=== PATIENT | male | born 1970 | race Caucasian/White ===

== ENCOUNTER 2020-02-29 03:46 | Emergency (ER) | payer OTHER ==
[~2020-02-29] VITALS: Ht 170.2 cm; Wt 103.6 kg
--- NOTE | 2020-02-29 04:14 | PHYS DOC ---
Past History Past Medical History: Diabetes, Hypertension Past Surgical History: Other Additional Past Surgical Histo: R ACL Alcohol Use: None General Adult EDM: Chief Complaint: SHORTNESS OF BREATH HPI: HPI: 49-year-old male presents with shortness of breath. [facility] where [facility] are known positive COVID-19 patients. The patient was tested on Monday of last week and that test was negative. After the test, but before the results he was in close contact with another patient that ended up being positive. The patient was retested yesterday with the results are not currently available. He woke up this morning around 2:30 AM feeling like he could not take a deep breath. The patient has been having intermittent sweats and chills. No measured fever. He is also had body aches and a mild sore throat. Review of Systems: Review of Systems: Constitutional: Body aches. Denies fever or chills Eyes: Denies change in visual acuity HENT: sore throat Respiratory: shortness of breath Cardiovascular: Denies chest pain or edema GI: Denies abdominal pain, nausea, vomiting, bloody stools or diarrhea : Denies dysuria Musculoskeletal: Denies back pain or joint pain Integument: Denies rash Neurologic: Denies headache, focal weakness or sensory changes Endocrine: Denies polyuria or polydipsia Lymphatic: Denies swollen glands Psychiatric: Denies depression or anxiety Heart Score: Risk Factors: Risk Factors: DM, Current or recent (<one month) smoker, HTN, HLP, family history of CAD, obesity. Risk Scores: Score 0 - 3: 2.5% MACE over next 6 weeks - Discharge Home Score 4 - 6: 20.3% MACE over next 6 weeks - Admit for Clinical Observation Score 7 - 10: 72.7% MACE over next 6 weeks - Early Invasive Strategies Allergies: Allergies: Allergies Coded Allergies Type Severity Reaction Last Updated Verified gemfibrozil Allergy Unknown 02/29/20 Yes Physical Exam: PE: Constitutional: Well developed, well nourished, no acute distress, non-toxic appearance. [] HENT: Normocephalic, atraumatic, bilateral external ears normal, oropharynx moist, no oral exudates, nose normal. [] Eyes: PERRLA, EOMI, conjunctiva normal, no discharge. [] Neck: Normal range of motion, no tenderness, supple, no stridor. [] Cardiovascular:Heart rate regular rhythm, no murmur [] Lungs & Thorax: Bilateral breath sounds clear to auscultation [] Abdomen: Bowel sounds normal, soft, no tenderness, no masses, no pulsatile masses. [] Skin: Warm, dry, no erythema, no rash. [] Back: No tenderness, no CVA tenderness. [] Extremities: No tenderness, no cyanosis, no clubbing, ROM intact, no edema. [] Neurologic: Alert and oriented X 3, normal motor function, normal sensory function, no focal deficits noted. [] Psychologic: Affect normal, judgement normal, mood anxious. [] Current Patient Data: Vital Signs: Vital Signs Date Time Temp Pulse Resp B/P (MAP) Pulse Ox O2 Delivery O2 Flow Rate FiO2 02/29/20 03:59 98.3 89 18 143/112 (122) 98 Room Air EKG: EKG: [] Radiology/Procedures: Radiology/Procedures: [] Course & Med Decision Making: Course & Med Decision Making Pertinent Labs and Imaging studies reviewed. (See chart for details) The patient's EKG is unremarkable. His chest x-ray is negative for acute findings. His labs show an elevated hemoglobin, low white count, and a slightly low potassium. His glucose is 176. His troponin is negative. The patient was retested for COVID-19 yesterday. I have advised that he wait for these results. His symptoms are consistent with COVID-19. I do not find any other acute cardiopulmonary problem at this time. The patient does not need to be admitted to the hospital. He is stable for discharge at this time. [] Dragon Disclaimer: Dragon Disclaimer: This electronic medical record was generated, in whole or in part, using a voice recognition dictation system. Departure Departure: Impression: Primary Impression: Shortness of breath Additional Impression: Close exposure to COVID-19 virus Disposition: 01 HOME, SELF-CARE Condition: STABLE Referrals: HUNTER TOTH MD (PCP) Patient Instructions: Shortness of Breath, [id number] KYUNG LOGAN DO February 29, 2020 04:14
--- NOTE | 2020-02-29 04:26 | EKG ---
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
[2020-02-29 04:30] LABS: BASO % 1 % (0-3); EOS % 1 % (0-3); HEMATOCRIT 52.1 % (39.0-53.0); HEMOGLOBIN 17.6 g/dL (13.0-17.5); LYMPH # 1.2 x10^3/uL (1.0-4.8); LYMPH % 36 % (24-48); MEAN CORPUSCULAR HEMOGLOBIN 30 pg (25-35); MEAN CORPUSCULAR HGB CONC 34 g/dL (31-37); MEAN CORPUSCULAR VOLUME 88 fL (79-100); MONO # 0.5 x10^3/uL (0.0-1.1); MONO % 16 % (0-9); NEUT # 1.6 x10^3uL (1.8-7.7); NEUT % 46 % (31-73); PLATELET COUNT 144 x10^3/uL (140-400); RED BLOOD COUNT 5.93 x10^6/uL (4.30-5.70); RED CELL DISTRIBUTION WIDTH 14.7 % (11.5-14.5); WHITE BLOOD COUNT 3.4 x10^3/uL (4.0-11.0)
[2020-02-29 04:36] LABS: CALCIUM 8.3 mg/dL (8.5-10.1); CREATININE 1.3 mg/dL (0.7-1.3); GFR 58.2; POTASSIUM 3.3 mmol/L (3.5-5.1)
[2020-02-29 04:41] LABS: ALBUMIN 3.6 g/dL (3.4-5.0); ALBUMIN/GLOBULIN RATIO 1.2 (1.0-1.7); TOTAL BILIRUBIN 0.2 mg/dL (0.2-1.0); TOTAL PROTEIN 6.7 g/dL (6.4-8.2)
[2020-02-29 04:52] VITALS: BP 139/90
--- NOTE | 2020-02-29 05:29 | RAD ---
CHEST AP ONLY Clinical Indication: Shortness of breath Comparison: None. Findings: The cardiomediastinal silhouette is normal. Lungs are clear. There is no pneumothorax. No pleural effusion is appreciated. No acute bone abnormality. IMPRESSION: No acute cardiopulmonary process. Electronically signed by: Cristiano Ortiz MD (02/29/2020 5:26 AM) [id number]
== END 2020-02-29 04:55 | disposition home or self-care (01) ==
LOC: ER 03:46
DX: R06.02 Shortness of breath (principal); Z20.828 Contact with and (suspected) exposure to other viral communicable diseases; Z88.8 Allergy status to other drugs, medicaments and biological substances; E11.9 Type 2 diabetes mellitus without complications; I10 Essential (primary) hypertension
CPT/HCPCS: 36415; 71045; 80053; 84484; 85025; 93005; 99285